=== PATIENT | male | born 1955 | race Hispanic/Latino ===

== ENCOUNTER 2021-09-07 08:24 | Observation (INO) | payer OTHER ==
[2021-09-02 10:52] LABS: Absolute Lymphocytes (CBC) 1.4 K/uL (0.7-4.9); Basophils % 0.9 % (0-1.3); Hematocrit 40.8 % (39.6-49.0); Lymphocytes % 34.2 % (15.3-44.8); MPV 7.6 fL (7.6-11.3); RBC Red Blood Cell Count 4.69 M/uL (4.33-5.43)
[2021-09-02 11:02] LABS: Protime INR 0.92
[2021-09-02 11:07] LABS: Potassium 3.7 mmol/L (3.5-5.1)
--- NOTE | 2021-09-02 11:43 | RAD REPORT ---
EXAM DESCRIPTION: RAD - Chest Pa And Lat (2 Views) - 09/02/2021 10:29 am CLINICAL HISTORY: PREOP COMPARISON: Chest Pa And Lat (2 Views) dated 03/13/2017; CHEST PA AND LAT 2 VIEW dated 02/25/2013; CHES T PA AND LAT 2 VIEW dated 01/24/2012 FINDINGS: Lines: None. Lungs: No evidence of edema or pneumonia. Pleural: No significant pleural effusions or pneumothorax. Cardiac: The heart size is within normal limits. Bones: No acute fractures. Other: IMPRESSION: No acute cardiopulmonary disease.
[2021-09-07] MEDS ORDERED: Ringers Lactate 1,000 ML IV ONE ×2 (08:32→11:45)
[2021-09-07] MEDS ORDERED: LIDOCAINE 2% MPF 5 ML VIAL ONE (08:40)
[2021-09-07] MEDS ORDERED: FENTANYL CITR 100 MCG/2 ML ONE ×2 (08:40→09:53)
[2021-09-07] MEDS ORDERED: MIDAZOLAM HCL 2 MG/2 ML INJ ONE ×2 (08:40→09:53)
[2021-09-07] MEDS ORDERED: propofoL 200 MG/20 ML VIAL IV ONE (08:40)
[2021-09-07] MEDS ORDERED: CEFAZOLIN/SWI 2gm 2 GM/20 ML SYR ONE (08:56)
[2021-09-07] MEDS ORDERED: LIDOCAINE 1% MPF 5 ML VIAL ONE (09:53)
[2021-09-07] MEDS ORDERED: BUPIVACAINE 0.25% PF 10 ML VIAL ONE ×2 (09:53→10:36)
[2021-09-07] MEDS ORDERED: BUPIVACAINE 0.5% Inj,MDV 50 mL VIAL ONE (09:53)
[2021-09-07] MEDS ORDERED: dexAMETHasone 10 MG/ML VIAL ONE (09:53)
[2021-09-07] MEDS ORDERED: KETAMINE HCL 500 MG/5 ML VIAL ONE (10:50)
[2021-09-07] MEDS ORDERED: HYDROMORPHONE HCL 1 MG/ML INJ ONE ×2 (10:57→14:08)
[2021-09-07] MEDS ORDERED: GLYCOPYRROLATE 0.2 MG/ML SYR ONE (10:57)
[2021-09-07] MEDS ORDERED: EPHEDRINE SULF 50 MG/ML VIAL ONE (10:59)
[2021-09-07] MEDS ORDERED: TRANEXAMIC ACID 1,000 MG in NA CHLORIDE 0.9% 50 ML IV ONE (11:00)
--- NOTE | 2021-09-07 13:26 | P.BOP ---
Preoperative diagnosis: left knee osteoarthritis Postoperative diagnosis: same Primary procedure: left total knee arthroplasty Fashion Buyer: NONE,NONE Estimated blood loss: 20 cc Specimen: left knee bone remnants Findings: see dictation Anesthesia: General Complications: None Implants: Biomet Jeffy Persona 10 CR femur, G tibia w/ stem, 32 patella, 10 CR poly Fluids & blood products: per anesthesia record; TT: 85 mins @ 300 mmHg Transferred to: Recovery Room Condition: Good
[2021-09-07] MEDS ORDERED: ONDANSETRON 4 MG/2 ML VIAL IV PRN (13:27)
[2021-09-07] MEDS ORDERED: DOCUSATE NA 100 MG CAP PO PRN (13:27)
[2021-09-07] MEDS ORDERED: TRAMADOL HCL 50 MG TAB PO PRN (13:30)
[2021-09-07] MEDS ORDERED: HOME MED 1 EA UNK (Cholecalciferol (Vitamin D3) [Vitamin D3] 1,000 UNIT Capsule) PO SCH (13:30)
[2021-09-07] MEDS: HYDROMORPHONE HCL 1 MG/ML INJ ONE ×2 (13:37→13:54)
--- NOTE | 2021-09-07 13:59 | RAD REPORT ---
EXAM DESCRIPTION: RAD - Knee Left 2 View - 09/07/2021 1:52 pm CLINICAL HISTORY: Knee surgery FINDINGS: Right knee prosthesis is in good position. No fracture or dislocation
[2021-09-07 14:12] LABS: Hematocrit 39.4 % (39.6-49.0)
[2021-09-07] MEDS ORDERED: MORPHINE 2 MG/ML SYR IV PRN (15:02)
[2021-09-07] MEDS: CEFAZOLIN 2 GM in NA CHLORIDE 0.9% 100 ML IVPB SCH (17:45)
[2021-09-07] MEDS: HYDROCODONE/APAP 7.5/325 MG TAB PO PRN (18:44)
[2021-09-07 19:08] VITALS: BMI 31.1
--- NOTE | 2021-09-07 21:51 | P.OP ---
Preoperative diagnosis: left knee osteoarthritis Postoperative diagnosis: same Primary procedure: left total knee arthroplasty Anesthesia: general Estimated blood loss: 20 cc Specimen: left knee bone remnants Findings: see dictation Operative Technique: Indication For Procedure: Matthew is a 66 year-old male presenting to my clinic with signs, symptoms and x-ray findings consistent with severe right knee osteoarthritis. I discussed with the patient at length risks and benefits associated with operative and nonoperative treatment. He had failed conservative treatment measures and had significant difficulties with ADLs secondary to his pain. We discussed operative treatment and elected to proceed with leftt total knee arthroplasty. He expressed understanding and elected to proceed with operative treatment. Description Of Procedure: After informed consent was obtained, the patient was identified in the preoperative holding area. The left lower extremity was marked. The patient was then taken to the PACU where he underwent a leftt lower extremity adductor canal block performed by Anesthesia. He was then taken to the operating room, transferred to the operating table in supine fashion, and placed under general anesthesia. The leftt lower extremity was then prepped and draped in usual sterile fashion. A time-out was initiated. The correct patient and procedure were confirmed and identified. The patient did receive his preoperative prophylactic antibiotics. The leftt lower extremity was then exsanguinated and tourniquet was inflated to 300 mmHg. Approximately 15 cm longitudinal incision was made centered over the anterior aspect of the leftt knee. Dissection was then taken to the extensor mechanism and a medial parapatellar arthrotomy was performed. The patella was everted and dislocated laterally and the knee was flexed in the fat pad. Medial lateral meniscus and ACL were all excised exposing the distal femur. Excess hypertrophic synovium was also excised within the suprapatellar pouch. The patient had an MRI of his leftt knee preoperatively for surgical planning and creation of cutting blocks. The cutting block was then placed over the distal femur and pins were then placed. The distal femoral cutting block was then placed over the pins. Knee joint was then used to ensure proper depth cut and the distal femur was then cut. The chamfer cutting guide was then placed over the distal end of the femur. Anterior, posterior cuts as well as anterior and posterior chamfer cuts were then made again confirming proper depth of the cut using an Maycol wing. Excess bone remnants were then sent to pathology for further evaluation. Next, attention was taken to the proximal tibia. A tibial jig and tibial cutting block was then placed on proximal aspect of the tibia and locked into position. Pins were then placed and alignment guide was then used to confirm proper alignment of the cut and then coronal and sagittal planes. Once this was confirmed, the cutting jig was placed over the pins and the proximal tibia was cut. Sizing trays were then selected and size 10 mm spacer was used and there was good overall balance in flexion and extension. Next, the trial implants were then placed using the size 10 standard CR femur and a size G tibia with an 10 mm CR poly. There was overall good range of motion and good stability. The trial implants were then removed. This improved the overall stability of the knee and components. The wound was then irrigated thoroughly with normal saline and the knee was then injected with 30 cc of 0.5% Marcaine both in the posterior capsule and mediallateral gutters as well as quadriceps tendon and periosteum. The tibia was then punched. The femur was drilled. The cement was then prepared on the back table. Cement was then placed first on the tibial surface followed by size G tibia with a stem given his weight to minimized risk of subsidence. Excess cement was removed with Winfield elevators. Size 10 standard CR femur was then placed on the distal femur after cement was placed on the distal femur. Excess cement was then removed and a size 10 mm CR trial poly was then placed. The knee was held in extension as the cement hardened. Undersurface of the patella was prepared debriding osteophytes using rongeurs as well as osteophytes.. Cement was placed on the undersurface of the patella after it was cut and a size 32 patella was placed. Once the cement was hardened, the knee was ranged, there was good overall stability both in flexion, extension and as well as stability with varus and valgus stresses. Trial poly was then removed and a size 10 mm CR poly was then placed and locked into position. The knee was then ranged again. There was good overall range of motion both for flexion and extension with good stability. The wound was then irrigated again thoroughly with normal saline using pulse lavage. Tourniquet was let down. Hemostasis was achieved using Bovie electrocautery. Extensor mechanism was then approximated using a #1 Vicryl both in interrupted and running fashion. The fascia was then approximated using 0 Vicryl. Subcutaneous tissue was approximated with a 2-0 Vicryl. Skin was approximated using aimee. Sterile dressings were applied. The patient was awakened and transferred back in stable condition Complications: None Implants: Biomet Jeffy Persona 10 CR femur, G tibia w/ stem, 32 patella, 10 CR poly Fluids & blood products: per anesthesia record; TT: 85 mins @ 300 mmHg Transferred to: Recovery Room Condition: Good
[2021-09-08] MEDS: CEFAZOLIN 2 GM in NA CHLORIDE 0.9% 100 ML IVPB SCH (00:04)
[2021-09-08] MEDS: HYDROCODONE/APAP 7.5/325 MG TAB PO PRN (00:17)
[2021-09-08] MEDS: ENOXAPARIN 30 MG/0.3 ML SQ SCH ×2 (05:27→09:44)
[2021-09-08 06:15] LABS: Hematocrit 36.1 % (39.6-49.0)
[2021-09-08] MEDS ORDERED: NA CHLORIDE 0.9% 0 ML ONE (08:29)
[2021-09-08] MEDS ORDERED: CELECOXIB 100 MG CAPSULE PO SCH (09:00)
[2021-09-08] MEDS ORDERED: CEFAZOLIN/SWI 2gm 2 GM/20 ML SYR IV ONE (09:00)
[2021-09-08] MEDS ORDERED: FERROUS SULFATE 325 MG TAB PO SCH (09:00)
[2021-09-08] MEDS ORDERED: CYANOCOBALAMIN 1,000 MCG TAB PO SCH (09:00)
[2021-09-08] MEDS ORDERED: HOME MED 1 EA UNK (Losartan/Hydrochlorothiazide [Losartan-Hctz 100-12.5 Mg Tab] Tablet) PO SCH (09:00)
[2021-09-08] MEDS ORDERED: LOSARTAN/HCTZ 50-12.5 PO SCH (09:00)
[2021-09-08] MEDS ORDERED: LOSARTAN POTASSIUM 50 MG TABLET PO SCH (09:00)
[2021-09-08] MEDS ORDERED: AMLODIPINE 5 MG TAB PO SCH (09:00)
--- NOTE | 2021-09-08 13:01 | P.DS ---
Admission Date: 09/07/21 Discharge Date: 09/08/21 Disposition: DC HOME/HOME HEALTH CARE Discharge Condition: GOOD Reason for Admission: s/p L TKA Consultations: none Procedures: left total knee arthroplasty on 09/07/2021 Brief History of Present Illness: Matthew is a 66-year-old male who underwent left total knee arthroplasty on September 07, 2021. He was admitted to floor postoperatively in stable condition. Hospital Course: Matthew is a 66-year-old male who underwent left total knee arthroplasty on September 07, 2021. He was admitted to floor postoperatively in stable condition. Physical therapy was consulted the patient mobilized well on the day of surgery as well as the following day. His vital signs remained stable and he was discharged with his pain controlled. He was given Lovenox while in the hospital for DVT prophylaxis and was started on Xarelto postoperatively after his discharge. Vital Signs/Physical Exam: Temp Pulse Resp BP Pulse Ox 98.5 F 58 18 106/61 97 09/08/21 08:00 09/08/21 09:00 09/08/21 08:00 09/08/21 09:00 09/08/21 08:00 Laboratory Data at Discharge: WBC 4.20 K/uL (4.3-10.9) L 09/02/21 10:35 Hgb 12.3 g/dL (13.6-17.9) L 09/08/21 05:53 Hct 36.1 % (39.6-49.0) L 09/08/21 05:53 Plt Count 211 K/uL (152-406) 09/02/21 10:35 PT 10.6 SECONDS (9.5-12.5) 09/02/21 10:35 INR 0.92 09/02/21 10:35 APTT 38.7 SECONDS (24.3-36.9) H 09/02/21 10:35 Sodium 142 mmol/L (136-145) 09/02/21 10:35 Potassium 3.7 mmol/L (3.5-5.1) 09/02/21 10:35 BUN 18 mg/dL (7-18) 09/02/21 10:35 Creatinine 0.96 mg/dL (0.55-1.3) 09/02/21 10:35 Glucose 99 mg/dL (74-106) 09/02/21 10:35 Home Medications: Cyanocobalamin [Vitamin B-12*] 1,000 mcg PO DAILY 05/27/15 Ferrous Sulfate [Iron] 325 mg PO DAILY 06/06/16 Amlodipine [Norvasc*] 1 tab PO DAILY 09/02/21 Cholecalciferol (Vitamin D3) [Vitamin D3] 50,000 unit PO SEECOM 09/02/21 Glucosamine/Chondroiti/Xexl237 [Cosamin Asu Capsule] 1 each PO DAILY 09/02/21 Losartan/Hydrochlorothiazide [Losartan-Hctz 100-12.5 mg Tab] 1 tab PO DAILY 09/02/21 Hydrocodone 7.5/APAP 325 [[place] 7.5/325 mg*] 1 tab PO Q4H PRN tab 09/08/21 Physician Discharge Instructions: Keep dressing clean dry and intact. Use ANKUR hose on bilateral lower extremities for 2 weeks. Begin Xarelto tomorrow, September 09, with breakfast. Diet: Regular Activity: Weight bearing as tolerated Followup: Edu Winston MD [Primary Care Provider] - 1-2 Weeks
[2021-09-08 13:14] VITALS: O2SAT 58
[2021-09-08 13:20] VITALS: BP 111/63; TEMP 98.7
== END 2021-09-08 14:39 | disposition home health service (06) ==
LOC: OR 08:24 → 2ND 14:55
PROVIDERS: ADMIT Orthopaedic Surgery Sports Medicine; ATTEND Orthopaedic Surgery Sports Medicine
PROC: 0SRD069 Replacement of Left Knee Joint with Oxidized Zirconium on Polyethylene Synthetic Substitute, Cemented, Open Approach (ICD-10-PCS; principal; 2021-09-07 10:00)
DX: M17.12 Unilateral primary osteoarthritis, left knee (principal); Z20.822 Contact with and (suspected) exposure to COVID-19
CPT/HCPCS: 93005; 85025; 80048; 36415 ×3; 85610; 82947; 88304; 88311; 85730; 85018 ×2; 85014 ×2; 71046; 73560; 97110; 97116 ×3; 97161; 97530 ×3; 94010; 27447; J2704; J1650 ×2; J2250; J3010 ×2; J1100; J1170 ×3; J0690 ×4; J7120 ×2; G0378 ×3; 88305

== ENCOUNTER 2024-06-01 17:14 | Emergency (ER) | payer OTHER ==
--- NOTE | 2024-06-01 18:04 | RAD REPORT ---
EXAM DESCRIPTION: RAD - Shoulder Right 2 View - 06/01/2024 5:57 pm CLINICAL HISTORY: PAIN COMPARISON: No comparisons FINDINGS: Moderate AC joint degenerative changes. Subacromial outlet narrowing is present moderately severe. No fracture or dislocation.
[2024-06-01] MEDS ORDERED: HYDROCODONE/APAP 7.5/325 MG TAB ONE (18:06)
--- NOTE | 2024-06-01 18:40 | EDPHYS ---
Physician Documentation [facility] Name: Dominick Alatorre Jr Age: 69 yrs Sex: Male : 1955 Arrival Date: 06/01/2024 Time: 17:14 Bed 8 Private MD: ED Physician Remi Fuller HPI: 06/01 17:47 This 69 yrs old Male presents to ER via Ambulatory with complaints of Fall sb4 Injury, Shoulder Injury. 17:47 slipped and fell this this afternoon, hurt his right shoulder. reports pain with ROM. sb4 no numbness, tingling, deformity. Historical: - Allergies: 17:38 No Known Allergies; tm6 - PMHx: 17:38 Hypertensive disorder; Hypercholesterolemia; tm6 - PSHx: 17:38 Cholecystectomy; gastric bypass; rotator cuff; hernia repair; coronary artery stent; tm6 knee replacement; - Immunization history:: Client reports receiving the 2nd dose of the Covid vaccine. - Infectious Disease History:: Denies. - Social history:: Smoking status: Patient reports the use of cigarette tobacco products, smokes one-half pack cigarettes per day, Patient uses alcohol, occasionally. ROS: 17:47 Constitutional: Negative for fever, chills, and weight loss, sb4 17:47 MS/extremity: Positive for injury or acute deformity, pain, of the anterior aspect of right shoulder and posterior aspect of right shoulder, 17:47 Skin: Positive for abrasion(s), of the right elbow, 17:47 All other systems are negative, Exam: 17:47 Constitutional: This is a well developed, well nourished patient who is awake, alert, sb4 and in no acute distress. Head/Face: Normocephalic, atraumatic. Eyes: Extra-ocular motions intact. Periorbital areas with no swelling, redness, or edema. ENT: Mucous membranes moist. 17:47 Musculoskeletal/extremity: ROM: full active range of motion, limited active range of motion, in the right arm, 17:47 Musculoskeletal/extremity: Circulation is intact in all extremities. Pulses: are normal with no appreciated deficits, Perfusion: the extremity is normally perfused throughout, Sensation intact. 17:47 Skin: injury, abrasion(s), small abrasion noted, of the right elbow, Vital Signs: 17:37 BP 122 / 75; Pulse 73; Resp 19; Temp 99.1(O); Pulse Ox 97% on R/A; Weight 113.85 kg; tm6 Height 5 ft. 7 in. ; Pain 6/10; 18:51 BP 118 / 72; Pulse 65; Resp 18; Temp 97.5; Pulse Ox 100% on R/A; ph 17:37 Body Mass Index 39.31 (113.85 kg, 170.18 cm) tm6 17:37 Pain Scale: Adult tm6 MDM: 17:33 Patient medically screened. sb4 18:40 Data reviewed: vital signs, nurses notes, radiologic studies, and as a result, I will sb4 discharge patient. Counseling: I had a detailed discussion with the patient and/or guardian regarding the historical points, exam findings, and any diagnostic results supporting the discharge/admit diagnosis, radiology results, the need for outpatient follow up, a orthopedic surgeon, to return to the emergency department if symptoms worsen or persist or if there are any questions or concerns that arise at home. 06/01 17:47 Order name: Shoulder Right (2 View) XRAY; Complete Time: 18:05 sb4 06/01 18:06 Order name: Shoulder Immobilizer; Complete Time: 18:51 sb4 Administered Medications: 18:11 Drug: Hydrocodone-Acetaminophen PO (7.5 mg-325 mg) 1 tabs PO once Route: PO; ph 18:51 Follow up: Response: No adverse reaction ph Disposition: 18:54 Co-signature as Attending Physician, Remi Fuller MD I reviewed the patient's care rt provided by the Advanced Practice Provider and agree with the diagnosis and treatment plan. Disposition Summary: 06/01/24 18:40 Discharge Ordered Notes: Location: Home sb4 Problem: new sb4 Symptoms: are unchanged sb4 Condition: Stable sb4 Diagnosis - Other sprain of right shoulder joint sb4 Followup: sb4 - With: Jason Maldonado MD - When: 1 week - Reason: Further diagnostic work-up, Recheck today's complaints, Re-evaluation by your physician Discharge Instructions: - Discharge Summary Sheet sb4 - How to Use a Shoulder Immobilizer sb4 - Shoulder Sprain sb4 Forms: - Patient Portal Instructions sb4 - Leadership Thank You Letter sb4 Signatures: Dispatcher SantosMercedes Su RN RN ph Stephanie Anderson PA-C PA-C sb4 Remi Fuller MD MD rt Rich Childers RN RN tm6 Corrections: (The following items were deleted from the chart) 17:40 17:38 PMHx: Hyperthyroidism; tm6 tm6
--- NOTE | 2024-06-01 18:40 | ER ---
Nurse's Notes [facility] Name: Dominick Alatorre Jr Age: 69 yrs Sex: Male : 1955 Arrival Date: 06/01/2024 Time: 17:14 Bed 8 Private MD: Diagnosis: Other sprain of right shoulder joint Presentation: 06/01 17:37 Chief complaint: Patient states: fell around 2pm today, landed on my right elbow. Since tm6 then my right shoulder has been hurting, especially when I move it. Coronavirus screen: Vaccine status: Patient reports receiving the 2nd dose of the covid vaccine. Ebola Screen: Patient negative for fever greater than or equal to 101.5 degrees Fahrenheit, and additional compatible Ebola Virus Disease symptoms Patient denies exposure to infectious person. Patient denies travel to an Ebola-affected area in the 21 days before illness onset. No symptoms or risks identified at this time. Initial Sepsis Screen: Does the patient meet any 2 criteria? No. Patient's initial sepsis screen is negative. Does the patient have a suspected source of infection? No. Patient's initial sepsis screen is negative. Risk Assessment: Do you want to hurt yourself or someone else? Patient reports no desire to harm self or others. Onset of symptoms was June 01, 2024 at 14:00. 17:37 Method Of Arrival: Ambulatory tm6 17:37 Acuity: KEYON 4 tm6 Triage Assessment: 17:38 General: Appears in no apparent distress. Behavior is calm, cooperative. Pain: tm6 Complains of pain in right arm Pain currently is 6 out of 10 on a pain scale. Pain began 2 hours ago. Aggravated by increased activity. EENT: No signs and/or symptoms were reported regarding the EENT system. Neuro: Level of Consciousness is awake, alert, obeys commands, Oriented to person, place, time, situation. Cardiovascular: Patient's skin is warm and dry. Respiratory: Airway is patent Respiratory effort is even, unlabored, Respiratory pattern is regular, symmetrical. GI: No signs and/or symptoms were reported involving the gastrointestinal system. Abdomen is flat, non-distended. : No signs and/or symptoms were reported regarding the genitourinary system. Derm: No signs and/or symptoms reported regarding the dermatologic system. Musculoskeletal: Reports pain in right arm Pain is 6 out of 10 on a pain scale. Historical: - Allergies: 17:38 No Known Allergies; tm6 - PMHx: 17:38 Hypertensive disorder; Hypercholesterolemia; tm6 - PSHx: 17:38 Cholecystectomy; gastric bypass; rotator cuff; hernia repair; coronary artery stent; tm6 knee replacement; - Immunization history:: Client reports receiving the 2nd dose of the Covid vaccine. - Infectious Disease History:: Denies. - Social history:: Smoking status: Patient reports the use of cigarette tobacco products, smokes one-half pack cigarettes per day, Patient uses alcohol, occasionally. Screenin:50 [facility] ED Fall Risk Assessment (Adult) History of falling in the last 3 months, ph including since admission Yes- single mechanical fall (1 pt) Confusion or Disorientation No (0 pts) Intoxicated or Sedated No (0 pts) Impaired Gait No (0 pts) Mobility Assist Device Used No (0 pt) Altered Elimination No (0 pt) Score/Fall Risk Level 0 - 2 = Low Risk Oriented to surroundings, Maintained a safe environment, Hourly rounding (assess needs \T\ fall precautionary measures) done. Abuse screen: Denies threats or abuse. Denies injuries from another. Nutritional screening: No deficits noted. Tuberculosis screening: No symptoms or risk factors identified. Assessment: 18:11 General: Appears in no apparent distress. Behavior is calm, cooperative. Pain: ph Complains of pain in posterior aspect of right shoulder and anterior aspect of right shoulder. Neuro: Level of Consciousness is awake, alert, obeys commands, Oriented to person, place, time, situation. Cardiovascular: Capillary refill < 3 seconds in bilateral fingers Patient's skin is warm and dry. Respiratory: Airway is patent Respiratory effort is even, unlabored, Respiratory pattern is regular, symmetrical. Derm: Skin is pink, warm \T\ dry. Musculoskeletal: No deficits noted. Vital Signs: 17:37 BP 122 / 75; Pulse 73; Resp 19; Temp 99.1(O); Pulse Ox 97% on R/A; Weight 113.85 kg; tm6 Height 5 ft. 7 in. ; Pain 6/10; 18:51 BP 118 / 72; Pulse 65; Resp 18; Temp 97.5; Pulse Ox 100% on R/A; ph 17:37 Body Mass Index 39.31 (113.85 kg, 170.18 cm) tm6 17:37 Pain Scale: Adult tm6 ED Course: 17:17 Patient arrived in ED. ra3 17:22 Stephanie Anderson PA-C is PHCP. sb4 17:22 Remi Fuller MD is Attending Physician. sb4 17:38 Triage completed. tm6 17:38 Arm band placed on left wrist. tm6 17:47 Mercedes Nolasco, RN is Primary Nurse. ph 17:59 Shoulder Right (2 View) XRAY In Process Unspecified. EDMS 18:00 Patient has correct armband on for positive identification. Bed in low position. Call ph light in reach. Side rails up X 1. 18:40 Jason Maldonado MD is Referral Physician. sb4 18:50 No provider procedures requiring assistance completed. Patient did not have IV access ph during this emergency room visit. 18:51 Shoulder immobilizer applied on right shoulder. ph Administered Medications: 18:11 Drug: Hydrocodone-Acetaminophen PO (7.5 mg-325 mg) 1 tabs PO once Route: PO; ph 18:51 Follow up: Response: No adverse reaction ph Medication: 18:50 VIS not applicable for this client. ph Outcome: 18:40 Discharge ordered by . sb4 18:51 Discharged to home ambulatory, with significant other, ph 18:51 Condition: good 18:51 Discharge instructions given to patient, Instructed on discharge instructions, follow up and referral plans. Demonstrated understanding of instructions, follow-up care, 18:52 Patient left the ED. ph Signatures: Dispatcher [employer] [facility] Mercedes Nolasco, PRATEEK RN Stephanie Anderson PA-C PA-C Rich Leigh RN RN 6 Damaris Dia ra3 Corrections: (The following items were deleted from the chart) 17:40 17:38 PMHx: Hyperthyroidism; tm6 tm6
[2024-06-01 19:12] VITALS: BP 118/72; TEMP 97.5; O2SAT 100
== END 2024-06-01 18:52 | disposition home or self-care (01) ==
LOC: ER 17:14
DX: S43.401A Unspecified sprain of right shoulder joint, initial encounter (principal); I10 Essential (primary) hypertension; E78.00 Pure hypercholesterolemia, unspecified; Z95.5 Presence of coronary angioplasty implant and graft; Z96.659 Presence of unspecified artificial knee joint; F17.210 Nicotine dependence, cigarettes, uncomplicated; W01.0XXA Fall on same level from slipping, tripping and stumbling without subsequent striking against object, initial encounter; Y93.9 Activity, unspecified; Y92.9 Unspecified place or not applicable
CPT/HCPCS: 99283